=== PATIENT | male | born 1945 | race Caucasian/White ===

== ENCOUNTER 2016-06-05 11:49 | Emergency (ER) | payer OTHER ==
[~2016-06-05] VITALS: Ht 177.8 cm; Wt 79.0 kg
[2016-06-05 11:53] VITALS: BP 128/66; PULSE 60; RESP 20; TEMP 97.8; O2SAT 97
[2016-06-05] MEDS ORDERED: SODIUM CHLORIDE 0.9% FLUSH 10 ML FLUSH IVF PRN (12:00)
[2016-06-05] MEDS ORDERED: ASPIRIN 81 MG CHEW TAB PO ONE (12:00)
--- NOTE | 2016-06-05 12:07 | PD ---
HPI Chief Complaint: Chest Pain Time Seen by Provider: 11:53 Travel History International Travel<30 days: No Contact w/Intl Traveler<30days: No Traveled to known affect area: No History of Present Illness HPI The patient is a 71-year-old male who presents emergency department for chest pain. The patient notes a 4 day history of cough and cold symptoms of the drive mostly nonproductive cough. The patient has also had some intermittent episodes of left-sided chest pain, located lateral left chest wall , that was described as dull and achy. The pain radiates from the anterior chest wall around the left chest in a bandlike fashion to the left scapula. He denies any rash over the affected area or history of shingles. The patient developed pain earlier today after eating breakfast and was left-sided, lasted approximately 30 minutes, then self resolved. He then developed some chest pain over the affected area just prior to arrival, took 2 nitroglycerin without any alleviation of his symptoms. However, the patient states that his chest pain resolved on its own. He did take a baby aspirin this morning. The patient does have a history of three-vessel CABG that was performed at 2013 in [place], [place]. The patient states he had a stress test approximately 2-3 months ago that was negative. The patient does have a history of hypertension and hyperlipidemia with known CAD. The patient denies any known history of pulmonary embolism, DVT, recent lower extremity swelling. The patient is currently on vacation from [place]. He denies any current fever, has had intermittent chills. The patient denied any shortness of breath, nausea, vomiting, or diaphoresis with his symptoms. [facility] Past Medical History Narrative Medical Hypertension, hyperlipidemia, coronary artery disease Past Surgical History Narrative Surgical Three-vessel CABG 2013 Social History Tobacco Use: No Allergies-Medications (Allergen,Severity, Reaction): Coded Allergies: Compazine (Verified Allergy, Severe, Anaphylaxis, 06/05/16) Reported Meds & Prescriptions Reported Meds & Active Scripts Active Reported Simvastatin 40 Mg Tab Unknown Dose PO DAILY Nitroglycerin SL (Nitroglycerin) 0.4 Mg Subl 0.4 Mg SL DIRECTED PRN ONE TABLET UNDER THE TONGUE NEEDED FOR CHEST PAIN, MAY REPEAT EVERY FIVE MINUTES FOR A TOTAL OF 3 DOSES OR CALL 911 IF NO RELIEF Aspirin Low Dose (Aspirin) 81 Mg Chew 81 Mg CHEW DAILY Review of Systems Except as stated in HPI: all other systems reviewed are Neg General / Constitutional: Positive: Chills, No: Fever HENT: No: Lightheadedness Cardiovascular: Positive: Chest Pain or Discomfort, No: Diaphoresis Respiratory: Positive: Cough, No: Shortness of Breath Gastrointestinal: No: Nausea, Vomiting, Abdominal Pain Musculoskeletal: No: Edema Neurologic: No: Dizziness Physical Exam Narrative GENERAL: Awake, alert, pleasant 71-year-old male who appears his stated age and is in no acute respiratory distress. SKIN: Focused skin assessment warm/dry. No stigmata of shingles over the left chest wall. HEAD: Atraumatic. Normocephalic. EYES: No injection or drainage. ENT: No nasal bleeding or discharge. Mucous membranes pink and moist. NECK: Trachea midline. No JVD. CARDIOVASCULAR: Regular, bradycardic with a heart rate in the 50s. Well-healed midline incisional scar. Palpation the left chest wall does not reproduce symptoms. RESPIRATORY: No accessory muscle use. Clear to auscultation. Breath sounds equal bilaterally. GASTROINTESTINAL: Abdomen soft, non-tender, nondistended. No rebound tenderness or epigastric tenderness. Negative Nowak's. MUSCULOSKELETAL: No obvious deformities. No clubbing. No cyanosis. No edema. Back: Patient is tender along the rhomboids on the left aspect along the scapula border, palpation reproduces symptoms. NEUROLOGICAL: Awake and alert. No obvious cranial nerve deficits. Motor grossly within normal limits. Normal speech. PSYCHIATRIC: Appropriate mood and affect; insight and judgment normal. Data Data Last Documented VS Vital Signs Date Time Temp Pulse Resp B/P Pulse Ox O2 Delivery O2 Flow Rate FiO2 06/05/16 14:40 58 18 131/68 98 06/05/16 12:08 Room Air 06/05/16 11:53 97.8 Orders Ckmb (Isoenzyme) Profile (06/05/16 11:59) Complete Blood Count With Diff (06/05/16 11:59) Comprehensive Metabolic Panel (06/05/16 11:59) Magnesium (Mg) (06/05/16 11:59) Prothrombin Time / Inr (Pt) (06/05/16 11:59) Act Partial Throm Time (Ptt) (06/05/16 11:59) Troponin I (06/05/16 11:59) Lipase (06/05/16 11:59) Chest, Single Ap (06/05/16 11:59) Ecg Monitoring (06/05/16 11:59) Bilateral Bp Monitoring (06/05/16 11:59) Iv Access Insert/Monitor (06/05/16 11:59) Oximetry (06/05/16 11:59) Oxygen Administration (06/05/16 11:59) Aspirin Chew (Aspirin Chew) (06/05/16 12:00) Sodium Chloride 0.9% Flush (Ns Flush) (06/05/16 12:00) Albuterol-Ipratropium Neb (Duoneb Neb) (06/05/16 12:15) Lidocaine Pf 4% Neb (Lidocaine Pf 4% Neb (06/05/16 12:15) CKMB (06/05/16 11:56) CKMB% (06/05/16 11:56) Troponin I (06/05/16 14:00) Labs Laboratory Tests Test 06/05/16 06/05/16 11:56 14:00 White Blood Count 4.0 TH/MM3 Red Blood Count 4.48 MIL/MM3 Hemoglobin 13.9 GM/DL Hematocrit 40.3 % Mean Corpuscular Volume 89.9 FL Mean Corpuscular Hemoglobin 31.1 PG Mean Corpuscular Hemoglobin 34.5 % Concent Red Cell Distribution Width 11.7 % Platelet Count 117 TH/MM3 Mean Platelet Volume 9.0 FL Neutrophils (%) (Auto) 57.0 % Lymphocytes (%) (Auto) 24.9 % Monocytes (%) (Auto) 12.7 % Eosinophils (%) (Auto) 4.7 % Basophils (%) (Auto) 0.7 % Neutrophils # (Auto) 2.3 TH/MM3 Lymphocytes # (Auto) 1.0 TH/MM3 Monocytes # (Auto) 0.5 TH/MM3 Eosinophils # (Auto) 0.2 TH/MM3 Basophils # (Auto) 0.0 TH/MM3 CBC Comment DIFF FINAL Differential Comment Prothrombin Time 10.7 SEC Prothromb Time International 1.0 RATIO Ratio Activated Partial 28.6 SEC Thromboplast Time Sodium Level 145 MEQ/L Potassium Level 4.0 MEQ/L Chloride Level 110 MEQ/L Carbon Dioxide Level 28.5 MEQ/L Anion Gap 7 MEQ/L Blood Urea Nitrogen 15 MG/DL Creatinine 1.10 MG/DL Estimat Glomerular Filtration 66 ML/MIN Rate Random Glucose 119 MG/DL Calcium Level 8.1 MG/DL Magnesium Level 2.3 MG/DL Total Bilirubin 0.5 MG/DL Aspartate Amino Transf 20 U/L (AST/SGOT) Alanine Aminotransferase 33 U/L (ALT/SGPT) Alkaline Phosphatase 72 U/L Total Creatine Kinase 102 U/L Creatine Kinase MB 1.4 NG/ML Troponin I LESS THAN 0.02 LESS THAN 0.02 NG/ML NG/ML Total Protein 6.6 GM/DL Albumin 3.4 GM/DL Lipase 134 U/L [facility] Medical Decision Making Medical Screen Exam Complete: Yes Emergency Medical Condition: Yes Medical Record Reviewed: Yes Interpretation(s) EKG reveals sinus bradycardia with a heart rate of 57. Q wave noted in lead 3. Inverted T waves noted in lead V5 and V6. Laboratory Tests Test 06/05/16 06/05/16 11:56 14:00 White Blood Count 4.0 TH/MM3 Red Blood Count 4.48 MIL/MM3 Hemoglobin 13.9 GM/DL Hematocrit 40.3 % Mean Corpuscular Volume 89.9 FL Mean Corpuscular Hemoglobin 31.1 PG Mean Corpuscular Hemoglobin 34.5 % Concent Red Cell Distribution Width 11.7 % Platelet Count 117 TH/MM3 Mean Platelet Volume 9.0 FL Neutrophils (%) (Auto) 57.0 % Lymphocytes (%) (Auto) 24.9 % Monocytes (%) (Auto) 12.7 % Eosinophils (%) (Auto) 4.7 % Basophils (%) (Auto) 0.7 % Neutrophils # (Auto) 2.3 TH/MM3 Lymphocytes # (Auto) 1.0 TH/MM3 Monocytes # (Auto) 0.5 TH/MM3 Eosinophils # (Auto) 0.2 TH/MM3 Basophils # (Auto) 0.0 TH/MM3 CBC Comment DIFF FINAL Differential Comment Prothrombin Time 10.7 SEC Prothromb Time International 1.0 RATIO Ratio Activated Partial 28.6 SEC Thromboplast Time Sodium Level 145 MEQ/L Potassium Level 4.0 MEQ/L Chloride Level 110 MEQ/L Carbon Dioxide Level 28.5 MEQ/L Anion Gap 7 MEQ/L Blood Urea Nitrogen 15 MG/DL Creatinine 1.10 MG/DL Estimat Glomerular Filtration 66 ML/MIN Rate Random Glucose 119 MG/DL Calcium Level 8.1 MG/DL Magnesium Level 2.3 MG/DL Total Bilirubin 0.5 MG/DL Aspartate Amino Transf 20 U/L (AST/SGOT) Alanine Aminotransferase 33 U/L (ALT/SGPT) Alkaline Phosphatase 72 U/L Total Creatine Kinase 102 U/L Creatine Kinase MB 1.4 NG/ML Troponin I LESS THAN 0.02 LESS THAN 0.02 NG/ML NG/ML Total Protein 6.6 GM/DL Albumin 3.4 GM/DL Lipase 134 U/L Last Impressions Chest X-Ray 06/05/16 1159 Signed Impressions: Service Date/Time: Sunday, June 05, 2016 12:11 - CONCLUSION: 1. Mild cardiomegaly. No acute abnormality. Stefan Oliver MD Differential Diagnosis Differential diagnosis includes ACS, bronchitis, pneumonia, pulmonary embolism, pleural effusion, URI. Narrative Course IV was established, labs are drawn and sent, and the patient was placed on cardiac telemetry monitoring and continuous pulse oximetry monitoring. EKG was ordered and interpreted. Chest x-ray was obtained. The patient was administered aspirin 162 mg orally. The patient's chest x-rays unremarkable. EKG is unremarkable. The patient's initial troponin was negative. The patient does have reproducible pain along the rhomboids on the left and a negative stress test 2-3 months ago. Therefore, patient will have 2 sets of cardiac enzymes, 2 hours apart. If negative, the patient be discharged home on anti- inflammatories and is advised to follow-up with his primary physician. The patient is comfortable with this plan of care and disposition. Serial enzymes are negative. The patient is currently chest pain-free. The patient discharged home and will be provided a copy of his labs and x-ray results at discharge. He is advised to return if symptoms worsen or progress. Diagnosis Primary Impression: Atypical chest pain Patient Instructions: General Instructions Additional Instructions: Medications as directed. Follow-up with your primary physician. Return if symptoms worsen or progress. Please provide the patient a copy of his lab results and chest x-ray results at discharge. Ibuprofen as directed. Med/Other Pt SpecificInfo: Prescription(s) given Scripts Ibuprofen 400 Mg [id number] Mg PO Q6H PRN (PAIN SCALE 1 TO 10) #20 TAB Ref 0 Prov:Remington Briggs MD 06/05/16 Disposition: DISCHARGE HOME Condition: Stable Remington Briggs MD Jun 05, 2016 12:07
[2016-06-05 12:08] VITALS: BP 108/60; PULSE 55; RESP 18; O2SAT 98
[2016-06-05] MEDS ORDERED: ASPI81CH37 CHEW (12:14)
[2016-06-05] MEDS ORDERED: RESP: LIDOCAINE HCL 4% PF 5 ML NEB NEB ONE (12:15)
[2016-06-05] MEDS ORDERED: RESP: ALBUTEROL 2.5 MG/IPRATROPIUM 0.5 MG NEB (SCH) NEB ONE (12:15)
[2016-06-05] MEDS ORDERED: NITR1SUB3 SL (12:15)
[2016-06-05] MEDS ORDERED: SIMV40TA PO (12:17)
--- NOTE | 2016-06-05 12:25 | RADHPO ---
EXAM DATE/TIME: 06/05/2016 12:11 [facility] COMPARISON: No previous studies available for comparison. INDICATIONS : Chest pain and cough. MEDICAL HISTORY : None. SURGICAL HISTORY : CABG. ENCOUNTER: Initial ACUITY: 1 day PAIN SCORE: 6/10 LOCATION: Left chest FINDINGS: The heart is enlarged. The patient is post median sternotomy. The lungs are clear. The bony structure s are grossly intact. CONCLUSION: 1. Mild cardiomegaly. No acute abnormality. Stefan Oliver MD on June 05, 2016 at 12:23 Board Certified Radiologist. This report was verified electronically.
[2016-06-05 12:33] LABS: AUTOMATED NEUTROPHIL # 2.3 TH/MM3 (1.8-7.7); BASOPHIL % 0.7 % (0.0-2.0); EOSINOPHIL # 0.2 TH/MM3 (0-0.4); EOSINOPHIL % 4.7 % (0.0-4.0); HEMATOCRIT 40.3 % (39.0-51.0); HEMO FLAGS DIFF FINAL; LYMPH % 24.9 % (9.0-44.0); MEAN CELL VOLUME 89.9 FL (80.0-100.0); MEAN CORPUSCULAR HEMOGLOBIN 31.1 PG (27.0-34.0); MEAN CORPUSCULAR HGB CONC 34.5 % (32.0-36.0); MONO % 12.7 % (0.0-8.0); PLATELET COUNT 117 TH/MM3 (150-450); RED BLOOD COUNT 4.48 MIL/MM3 (4.50-5.90); RED CELL DISTRIBUTION WIDTH 11.7 % (11.6-17.2)
[2016-06-05 12:39] LABS: CHLORIDE 110 MEQ/L (98-107); SODIUM (NA) 145 MEQ/L (136-145)
[2016-06-05 12:43] LABS: ANION GAP 7 MEQ/L (5-15); BICARBONATE 28.5 MEQ/L (21.0-32.0); MAGNESIUM 2.3 MG/DL (1.5-2.5)
[2016-06-05 12:44] LABS: BLOOD UREA NITROGEN 15 MG/DL (7-18)
[2016-06-05 12:46] LABS: ALT (GPT) 33 U/L (12-78); AST (GOT) 20 U/L (15-37); GLOMERULAR FILTRATION RATE 66 ML/MIN (>89)
[2016-06-05 12:47] LABS: APTT (PATIENT) 28.6 SEC (24.3-30.1); PROTHROMBIN TIME - PATIENT 10.7 SEC (9.8-11.6)
[2016-06-05 12:48] LABS: TOTAL BILIRUBIN ADULT 0.5 MG/DL (0.2-1.0)
[2016-06-05 12:49] LABS: ALKALINE PHOSPHATASE 72 U/L (45-117); CREATINE KINASE 102 U/L (39-308)
[2016-06-05 13:01] LABS: CKMB 1.4 NG/ML (0.5-3.6)
[2016-06-05 14:40] VITALS: BP 131/68; PULSE 58; RESP 18; O2SAT 98
[2016-06-05] MEDS ORDERED: IBUP400T20 PO (14:47)
--- NOTE | 2016-06-06 10:33 | EKG ---
Date Performed: 06/05/2016 Time Performed: 11:48:44 PTAGE: 71 years EKG: Sinus bradycardia. Normal ECG except for rate NO PREVIOUS TRACING DOCTOR: Leigha Childs Interpretating Date/Time 06/06/2016 10:27:03
== END 2016-06-05 15:05 | disposition home or self-care (01) ==
LOC: PHED 11:49
DX: R07.89 Other chest pain (principal); E78.5 Hyperlipidemia, unspecified; R00.1 Bradycardia, unspecified; I25.10 Atherosclerotic heart disease of native coronary artery without angina pectoris; I10 Essential (primary) hypertension; Z95.1 Presence of aortocoronary bypass graft
CPT/HCPCS: 71010; 80053; 82550; 82552; 83690; 83735; 84484; 85025; 85610; 85730; 93005; 94664